=== PATIENT | female | born 1955 | race Caucasian/White ===

== ENCOUNTER 2021-11-18 15:16 | Outpatient (CLI) | payer OTHER, SELFPAY | END 2021-11-18 15:17 | disposition home or self-care (01) | LOC: WOUND 15:17 | PROVIDERS: PCP Physician Assistant; Visit Provider Nurse Practitioner Family | DX: I87.311 Chronic venous hypertension (idiopathic) with ulcer of right lower extremity (principal); L97.212 Non-pressure chronic ulcer of right calf with fat layer exposed; L03.115 Cellulitis of right lower limb; Q82.0 Hereditary lymphedema | CPT/HCPCS: 11042 ==

== ENCOUNTER 2021-11-24 10:41 | Outpatient (CLI) | payer OTHER, SELFPAY | END 2021-11-24 10:42 | disposition home or self-care (01) | LOC: WOUND 10:41 | PROVIDERS: Visit Provider Nurse Practitioner Family | DX: I87.311 Chronic venous hypertension (idiopathic) with ulcer of right lower extremity (principal); L97.812 Non-pressure chronic ulcer of other part of right lower leg with fat layer exposed; E11.622 Type 2 diabetes mellitus with other skin ulcer; Q82.0 Hereditary lymphedema | CPT/HCPCS: 11043 ==

== ENCOUNTER 2021-12-01 15:13 | Outpatient (CLI) | payer OTHER, SELFPAY | END 2021-12-01 15:14 | disposition home or self-care (01) | LOC: WOUND 15:13 | PROVIDERS: Visit Provider Nurse Practitioner Family | DX: L97.915 Non-pressure chronic ulcer of unspecified part of right lower leg with muscle involvement without evidence of necrosis (principal) | CPT/HCPCS: 11042; 11043 ==

== ENCOUNTER 2021-12-01 16:20 | Outpatient (CLI) | payer OTHER, SELFPAY | END 2021-12-01 16:21 | disposition home or self-care (01) | LOC: LAB 16:32 | PROVIDERS: Visit Provider Nurse Practitioner Family | DX: L97.915 Non-pressure chronic ulcer of unspecified part of right lower leg with muscle involvement without evidence of necrosis (principal) | CPT/HCPCS: 11042; 11043; 87070; 87186 ==

== ENCOUNTER 2021-12-08 15:28 | Outpatient (CLI) | payer OTHER, SELFPAY | END 2021-12-08 15:29 | disposition home or self-care (01) | LOC: WOUND 15:31 | PROVIDERS: Visit Provider Nurse Practitioner Family | DX: I87.311 Chronic venous hypertension (idiopathic) with ulcer of right lower extremity (principal); L97.812 Non-pressure chronic ulcer of other part of right lower leg with fat layer exposed; L03.115 Cellulitis of right lower limb | CPT/HCPCS: 11042 ==

== ENCOUNTER 2021-12-15 15:06 | Outpatient (CLI) | payer OTHER, SELFPAY | END 2021-12-15 15:07 | disposition home or self-care (01) | LOC: WOUND 15:06 | PROVIDERS: Visit Provider Nurse Practitioner Family | DX: I87.311 Chronic venous hypertension (idiopathic) with ulcer of right lower extremity (principal); L97.812 Non-pressure chronic ulcer of other part of right lower leg with fat layer exposed; L03.115 Cellulitis of right lower limb | CPT/HCPCS: 11042 ==

== ENCOUNTER 2021-12-22 15:39 | Outpatient (CLI) | payer OTHER, SELFPAY | END 2021-12-22 15:40 | disposition home or self-care (01) | LOC: WOUND 15:39 | PROVIDERS: Visit Provider Nurse Practitioner Family | DX: I87.311 Chronic venous hypertension (idiopathic) with ulcer of right lower extremity (principal); L97.812 Non-pressure chronic ulcer of other part of right lower leg with fat layer exposed; L03.115 Cellulitis of right lower limb | CPT/HCPCS: 11042 ==

== ENCOUNTER 2021-12-29 15:51 | Outpatient (CLI) | payer OTHER, SELFPAY | END 2021-12-29 15:52 | disposition home or self-care (01) | LOC: WOUND 15:51 | PROVIDERS: Visit Provider Nurse Practitioner Family | DX: L03.115 Cellulitis of right lower limb (principal); Q82.0 Hereditary lymphedema | CPT/HCPCS: 11042 ==

== ENCOUNTER 2022-01-05 15:36 | Outpatient (CLI) | payer OTHER, SELFPAY | END 2022-01-05 15:37 | disposition home or self-care (01) | LOC: WOUND 15:36 | PROVIDERS: Visit Provider Nurse Practitioner Family | DX: I87.311 Chronic venous hypertension (idiopathic) with ulcer of right lower extremity (principal); L97.215 Non-pressure chronic ulcer of right calf with muscle involvement without evidence of necrosis; L03.115 Cellulitis of right lower limb | CPT/HCPCS: 11042 ==

== ENCOUNTER 2022-01-12 15:37 | Outpatient (CLI) | payer OTHER, SELFPAY | END 2022-01-12 15:38 | disposition home or self-care (01) | LOC: WOUND 15:43 | PROVIDERS: Visit Provider Nurse Practitioner Family | DX: I87.311 Chronic venous hypertension (idiopathic) with ulcer of right lower extremity (principal); L97.215 Non-pressure chronic ulcer of right calf with muscle involvement without evidence of necrosis; L03.115 Cellulitis of right lower limb; Q82.0 Hereditary lymphedema; L97.812 Non-pressure chronic ulcer of other part of right lower leg with fat layer exposed | CPT/HCPCS: 11042; 97597 ==

== ENCOUNTER 2022-01-26 15:40 | Outpatient (CLI) | payer OTHER, SELFPAY | END 2022-01-26 15:41 | disposition home or self-care (01) | LOC: WOUND 15:40 | PROVIDERS: Visit Provider Nurse Practitioner Family | DX: I87.311 Chronic venous hypertension (idiopathic) with ulcer of right lower extremity (principal); L97.215 Non-pressure chronic ulcer of right calf with muscle involvement without evidence of necrosis; Q82.0 Hereditary lymphedema | CPT/HCPCS: 11042 ==

== ENCOUNTER 2022-02-02 15:05 | Outpatient (CLI) | payer OTHER, SELFPAY | END 2022-02-02 15:06 | disposition home or self-care (01) | LOC: WOUND 15:05 | PROVIDERS: Visit Provider Nurse Practitioner Family | DX: I87.311 Chronic venous hypertension (idiopathic) with ulcer of right lower extremity (principal); E11.622 Type 2 diabetes mellitus with other skin ulcer; L97.215 Non-pressure chronic ulcer of right calf with muscle involvement without evidence of necrosis; L97.212 Non-pressure chronic ulcer of right calf with fat layer exposed; Q82.0 Hereditary lymphedema; L72.0 Epidermal cyst | CPT/HCPCS: 11042 ==

== ENCOUNTER 2022-02-16 15:31 | Outpatient (CLI) | payer OTHER, SELFPAY | END 2022-02-16 15:32 | disposition home or self-care (01) | LOC: WOUND 15:31 | PROVIDERS: Visit Provider Nurse Practitioner Family | DX: L03.115 Cellulitis of right lower limb (principal); I87.311 Chronic venous hypertension (idiopathic) with ulcer of right lower extremity; L97.215 Non-pressure chronic ulcer of right calf with muscle involvement without evidence of necrosis; L97.212 Non-pressure chronic ulcer of right calf with fat layer exposed; Q82.0 Hereditary lymphedema | CPT/HCPCS: 11042 ==

== ENCOUNTER 2022-03-02 15:28 | Outpatient (CLI) | payer OTHER, SELFPAY | END 2022-03-02 15:29 | disposition home or self-care (01) | LOC: WOUND 15:28 | PROVIDERS: Visit Provider Nurse Practitioner Family | DX: I87.311 Chronic venous hypertension (idiopathic) with ulcer of right lower extremity (principal); L97.215 Non-pressure chronic ulcer of right calf with muscle involvement without evidence of necrosis; L97.212 Non-pressure chronic ulcer of right calf with fat layer exposed; Q82.0 Hereditary lymphedema | CPT/HCPCS: 11042 ==

== ENCOUNTER 2022-03-16 15:29 | Outpatient (CLI) | payer OTHER, SELFPAY | END 2022-03-16 15:30 | disposition home or self-care (01) | LOC: WOUND 15:29 | PROVIDERS: Visit Provider Nurse Practitioner Family | DX: I87.311 Chronic venous hypertension (idiopathic) with ulcer of right lower extremity (principal); L97.812 Non-pressure chronic ulcer of other part of right lower leg with fat layer exposed; I83.012 Varicose veins of right lower extremity with ulcer of calf; L97.215 Non-pressure chronic ulcer of right calf with muscle involvement without evidence of necrosis | CPT/HCPCS: 11042; 97597 ==

== ENCOUNTER 2022-03-30 15:20 | Outpatient (CLI) | payer OTHER, SELFPAY | END 2022-03-30 15:21 | disposition home or self-care (01) | LOC: WOUND 15:20 | PROVIDERS: Visit Provider Nurse Practitioner Family | DX: I87.311 Chronic venous hypertension (idiopathic) with ulcer of right lower extremity (principal); L97.215 Non-pressure chronic ulcer of right calf with muscle involvement without evidence of necrosis; L97.812 Non-pressure chronic ulcer of other part of right lower leg with fat layer exposed | CPT/HCPCS: 11042 ==

== ENCOUNTER 2022-04-13 15:37 | Outpatient (CLI) | payer OTHER, SELFPAY | END 2022-04-13 15:38 | disposition home or self-care (01) | PROVIDERS: Visit Provider Physician Assistant Surgical | DX: I87.311 Chronic venous hypertension (idiopathic) with ulcer of right lower extremity (principal); L97.215 Non-pressure chronic ulcer of right calf with muscle involvement without evidence of necrosis; L97.212 Non-pressure chronic ulcer of right calf with fat layer exposed; S81.802A Unspecified open wound, left lower leg, initial encounter | CPT/HCPCS: 11042 ==

== ENCOUNTER 2022-04-27 14:59 | Outpatient (CLI) | payer OTHER, SELFPAY | END 2022-04-27 15:00 | disposition home or self-care (01) | LOC: WOUND 14:59 | PROVIDERS: Visit Provider Nurse Practitioner Family | DX: L97.215 Non-pressure chronic ulcer of right calf with muscle involvement without evidence of necrosis (principal) | CPT/HCPCS: 11042 ==

== ENCOUNTER 2022-05-04 15:29 | Outpatient (CLI) | payer OTHER, SELFPAY | END 2022-05-04 15:30 | disposition home or self-care (01) | LOC: WOUND 15:30 | PROVIDERS: Visit Provider Nurse Practitioner Family | DX: I87.312 Chronic venous hypertension (idiopathic) with ulcer of left lower extremity (principal); L97.822 Non-pressure chronic ulcer of other part of left lower leg with fat layer exposed; E11.9 Type 2 diabetes mellitus without complications | CPT/HCPCS: 11042 ==

== ENCOUNTER 2022-05-13 09:15 | Outpatient (CLI) | payer OTHER, SELFPAY ==
--- NOTE | 2022-05-13 09:15 | CRLHL7_ITS ---
For Patients: As a result of the Century Cures Act, medical imaging exams and procedure reports are released immediately into your electronic medical record. You may view this report before your referring provider. If you have questions, please contact your health care provider. Technique: Double-contrast esophagram performed after the uneventful administration of effervescent crystals and thick barium followed by thin barium. Fluoroscopy time 1 minutes 13 seconds. Indication: Dysphagia Comparison: None. Findings: A large hiatal hernia is present involving approximately 2/3 or 3/4 of the stomach. The distal esophagus is distended. No obstruction to the flow of barium. Delayed esophageal clearance noted along with spontaneous reflux and tertiary esophageal contractions. Impression: Large hiatal hernia, esophageal dysmotility, spontaneous reflux and chronic reflux esophagitis. Dictated by Matthew Rubi MD @ 05/13/2022 11:19:53 AM (Electronically Signed)
== END 2022-05-13 09:16 | disposition home or self-care (01) ==
LOC: RAD 09:18
PROVIDERS: PCP Physician Assistant; Visit Provider Physician Assistant Medical
DX: R13.10 Dysphagia, unspecified (principal); K44.9 Diaphragmatic hernia without obstruction or gangrene; K21.9 Gastro-esophageal reflux disease without esophagitis
CPT/HCPCS: 74221

== ENCOUNTER 2022-06-01 15:20 | Outpatient (CLI) | payer OTHER, SELFPAY | END 2022-06-01 15:21 | disposition home or self-care (01) | PROVIDERS: PCP Physician Assistant; Visit Provider Nurse Practitioner Family | DX: E11.622 Type 2 diabetes mellitus with other skin ulcer (principal); I87.312 Chronic venous hypertension (idiopathic) with ulcer of left lower extremity; L97.829 Non-pressure chronic ulcer of other part of left lower leg with unspecified severity; Z79.84 Long term (current) use of oral hypoglycemic drugs | CPT/HCPCS: 11042 ==

== ENCOUNTER 2022-06-15 15:30 | Outpatient (CLI) | payer OTHER, SELFPAY | END 2022-06-15 15:31 | disposition home or self-care (01) | LOC: WOUND 15:30 | PROVIDERS: PCP Physician Assistant; Visit Provider Nurse Practitioner Family | DX: E11.622 Type 2 diabetes mellitus with other skin ulcer (principal); I87.312 Chronic venous hypertension (idiopathic) with ulcer of left lower extremity; L97.829 Non-pressure chronic ulcer of other part of left lower leg with unspecified severity; Q82.0 Hereditary lymphedema; L84 Corns and callosities; Z79.84 Long term (current) use of oral hypoglycemic drugs | CPT/HCPCS: 11056; 99212 ==

== ENCOUNTER 2023-11-04 08:03 | Outpatient (CLI) | payer MEDICARE, SELFPAY | END 2023-11-04 08:04 | disposition home or self-care (01) | PROVIDERS: PCP Physician Assistant; Visit Provider Physician Assistant | DX: S81.801A Unspecified open wound, right lower leg, initial encounter (principal); W54.1XXA Struck by dog, initial encounter; E11.8 Type 2 diabetes mellitus with unspecified complications; I10 Essential (primary) hypertension; Z79.84 Long term (current) use of oral hypoglycemic drugs | CPT/HCPCS: 97597; G0463 ==

== ENCOUNTER 2023-11-11 09:50 | Outpatient (CLI) | payer MEDICARE, SELFPAY | END 2023-11-11 09:51 | disposition home or self-care (01) | LOC: WOUND 09:51 | PROVIDERS: PCP Physician Assistant; Visit Provider Nurse Practitioner Family | DX: E11.622 Type 2 diabetes mellitus with other skin ulcer (principal); L97.222 Non-pressure chronic ulcer of left calf with fat layer exposed; L97.212 Non-pressure chronic ulcer of right calf with fat layer exposed; I10 Essential (primary) hypertension; Z79.84 Long term (current) use of oral hypoglycemic drugs | CPT/HCPCS: 11042; 97597 ==

== ENCOUNTER 2023-11-19 09:50 | Outpatient (CLI) | payer MEDICARE, SELFPAY | END 2023-11-19 09:51 | disposition home or self-care (01) | LOC: WOUND 09:50 | PROVIDERS: PCP Physician Assistant; Visit Provider Nurse Practitioner Family | DX: E11.622 Type 2 diabetes mellitus with other skin ulcer (principal); L97.212 Non-pressure chronic ulcer of right calf with fat layer exposed; I10 Essential (primary) hypertension | CPT/HCPCS: 11042 ==

== ENCOUNTER 2023-11-25 09:27 | Outpatient (CLI) | payer MEDICARE, SELFPAY | END 2023-11-25 09:28 | disposition home or self-care (01) | LOC: WOUND 09:39 | PROVIDERS: PCP Physician Assistant; Visit Provider Nurse Practitioner Family | DX: E11.622 Type 2 diabetes mellitus with other skin ulcer (principal); L97.212 Non-pressure chronic ulcer of right calf with fat layer exposed; I10 Essential (primary) hypertension; Z79.84 Long term (current) use of oral hypoglycemic drugs | CPT/HCPCS: 11042 ==

== ENCOUNTER 2023-12-02 09:41 | Outpatient (CLI) | payer MEDICARE, SELFPAY | END 2023-12-02 09:42 | disposition home or self-care (01) | LOC: WOUND 09:42 | PROVIDERS: PCP Physician Assistant; Visit Provider Nurse Practitioner Family | DX: E11.622 Type 2 diabetes mellitus with other skin ulcer (principal); L97.212 Non-pressure chronic ulcer of right calf with fat layer exposed; Z79.84 Long term (current) use of oral hypoglycemic drugs | CPT/HCPCS: 11042 ==

== ENCOUNTER 2023-12-09 09:36 | Outpatient (CLI) | payer MEDICARE, SELFPAY | END 2023-12-09 09:37 | disposition home or self-care (01) | LOC: WOUND 09:36 | PROVIDERS: PCP Physician Assistant; Visit Provider Nurse Practitioner Family | DX: E11.622 Type 2 diabetes mellitus with other skin ulcer (principal); L97.212 Non-pressure chronic ulcer of right calf with fat layer exposed; Z79.84 Long term (current) use of oral hypoglycemic drugs | CPT/HCPCS: 11042 ==

== ENCOUNTER 2023-12-16 10:00 | Outpatient (CLI) | payer MEDICARE, SELFPAY | END 2023-12-16 10:01 | disposition home or self-care (01) | LOC: WOUND 10:00 | PROVIDERS: PCP Physician Assistant; Visit Provider Nurse Practitioner Family | DX: E11.622 Type 2 diabetes mellitus with other skin ulcer (principal); L97.218 Non-pressure chronic ulcer of right calf with other specified severity; Z79.84 Long term (current) use of oral hypoglycemic drugs | CPT/HCPCS: G0463 ==

== ENCOUNTER 2024-05-18 13:57 | Outpatient (CLI) | payer MEDICARE, SELFPAY ==
--- OUTSIDE RECORDS SUMMARY | 2024-05-18 12:02 | XMS_ITS | Continuity of Care Document ---
[facility] Address [address] [place] [address]- Encounter PVA Date(s): 04/20/24 - 04/20/24 [place] [address] [place] [address] [place] [phone] Encounter Diagnosis Cellulitis(Discharge Diagnosis) - 04/20/24 Discharge Disposition: Home/Self Care Attending Physician: SRINI MEREDITH MD Admitting Physician: SRINI MEREDITH MD Referring Physician: SRINI MEREDITH MD Allergies, Adverse Reactions, Alerts No Known Allergies Medications Bactrim DS oral tablet 1 tab, Oral, BID, X 7 day, # 14 tab, 0 Refill(s), 0 Start Date: 04/20/24 Stop Date: 04/27/24 Status: Ordered Vital Signs Most recent to oldest [Reference Range]: 1 2 Blood Pressure [90-140/60-90 mmHg] 165/1 01mmHg *HI* (04/20/24 9:50 PM) 177/106mmHg *HI* (04/20/24 5:54 PM) Blood Pressure Location Right (04/20/24 5:54 PM) Blood Pressure Method Automatic (04/20/24 9:50 PM) Automatic (04/20/24 5:54 PM) Dosing BMI 29 (04/20/24 9:50 PM) 29 (04/20/24 5:54 PM) Dosing BSA-Mosteller 1.92 m2 (04/20/24 9:50 PM) 1.92 m2 (04/20/24 5:54 PM) Dosing Weight 80 kg (04/20/24 9:50 PM) 80 kg (04/20/24 5:54 PM) Heart Rate [60-100 bpm] 70 bpm (04/20/24 9:50 PM) 75 bpm (04/20/24 5:54 PM) Height 165.1 cm (04/20/24 9:50 PM) 165.1 cm (04/20/24 5:54 PM) MAP 129 mmHg (04/20/24 5:54 PM) Respiratory Rate [14-20 breaths/min] 18 breaths/min (04/20/24 9:50 PM) 18 breaths/min (04/20/24 5:54 PM) SpO2/Pulse Oximetry [85-100 %] 95 % (04/20/24 9:50 PM) 94 % (04/20/24 5:54 PM) Temperature Temporal [36.3-38 degC] 36.6 degC (04/20/24 9:50 PM) 36.8 degC (04/20/24 5:54 PM) Social History Social History Type Response Smoking Status Never smoker entered on: 04/20/24 Sex Hospital Discharge Instructions Follow Up Care 04/20/2024 17:23:06 With:[facility] Address: [facility] [place] [address]- Business (1) When:3-5 days With:[facility] Address: [address] [place] [phone] Business (1) When:3-5 days With:return to the ED if youf have any worsening pain, shortness of breath, fever, numbness, tingling, weakness, or for any other concerns. Address:Unknown When:As needed Physician Emergency department Note * SHARON GUTIERREZ, HARRISON Luciano: PERFORM Event Display: ED Note-Physician Authored Date: DATE/TIME NOTE CREATED: 04/20/2024 22:42:45 DATE/TIME PATIENT SEEN: Time seen:??04/20/2024 21:33:46 CHIEF COMPLAINT: Pt comes from [place], ??R leg infection x4 weeks, red, swollen and pain 12/24 ??Hx infection/ cellulitis HISTORY OF PRESENT ILLNESS: pt with leg infection started 10d ago been on keflex but still think it is infected RLE anterior tib wound no fever able to ambulate ?? PHYSICAL EXAM: VITAL SIGNS: Vital Signs: Last Charted: Temperature Temporal 36.6 degC?? (04/20 21:50) Heart Rate 70 bpm?? (04/20 21:50) Respiratory Rate 18 breaths/min?? (04/20 21:50) Systolic Blood Pressure 165 mmHg (H) (04/20 21:50) Diastolic Blood Pressure 101 mmHg (H) (04/20 21:50) MAP 129 mmHg?? (04/20 17:54) Blood Pressure Location Right ?? (04/20 17:54) Blood Pressure Method Automatic ?? (04/20 21:50) SpO2/Pulse Oximetry 95 %?? (04/20 21:50) Dosing BMI 29 ?? (04/20 21:50) GENERAL:?? [No acute distress, non-toxic appearing.]_ HEAD:?? [Normal with no signs of head trauma.]_ EYES:?? [PERRLA, EOMI, conjunctiva normal, no discharge.]_ ENT:?? [Hearing grossly intact, normal oropharynx.]_ NECK:?? [Supple, no tenderness, no lymphadenopathy, no masses, no thyromegaly, no bruits, no JVD.]_ LUNGS:?? [Clear breath sounds bilaterally.?? No wheezes, rales, or rhonchi.]_ HEART:?? [Regular rate and rhythm.?? Normal S1 and S2, without murmurs, rub, or gallop.]_ VASC:?? [No edema. Peripheral pulses normal and equal in all extremities.]_ ABD:?? [Bowel sounds normal, soft, nontender, no masses, no organomegaly.]_ :?? [Normal.]_ LYMPH:?? [No lymphadenopathy noted.]_ EXT:?? [Normal range of motion, no joint swelling, no clubbing, no cyanosis.]_ SKIN:?? [wound TUBES/LINES/DRAINS: [None.]_ NEURO:?? [Alert and oriented x 3. Normal affect.?? Cranial nerves intact.?? No focal sensory or strength deficits.?? Reflexes symmetric.]_ MEDICAL DECISION MAKING: pt stable has leg wound possible cellulitis? given bactrim for trial low concern for deep space infection given that pt has no crepitus and no fluctuance dc IMPRESSION/PLAN: Cellulitis??L03.90 Orders: Discharge Patient Primary Assessment Screenings/History Adults Triage Part 1 Triage Part 2 PATIENT EDUCATION: Cellulitis, Adult, [id number] FOLLOW UP: With When Contact Information [facility] Within 3-[address] [place] [address]- Business (1) Additional Instructions: [facility] Within 3-5 days [address] [place] [address]- [phone] Business (1) Additional Instructions: return to the ED if youf have any worsening pain, shortness of breath, fever, numbness, tingling, weakness, or for any other concerns. Within As needed Additional Instructions: PROBLEM LIST/PAST MEDICAL HISTORY: Ongoing ? No qualifying data?? Historical ? No qualifying data? SOCIAL HISTORY: Home/Environment Human Trafficking Red Flags None., 04/20/2024 Substance Abuse Denies use Use:., 04/20/2024 Tobacco Never smoker, 04/20/2024 MEDICATIONS ORDERED: No qualifying data available MEDICATIONS ADMINISTERED: Given Bactrim DS 800 mg-160mg, 1 tab, Oral HOME MEDICATIONS: New sulfamethoxazole-trimethoprim (Bactrim DS oral tablet)1 tablet(s) Oral Twice daily for 7 day(s). Refills: 0. ALLERGIES: NKA RADIOLOGY/DIAGNOSTIC RESULTS: Radiology - Last 36 hours (0) No results in past 36 hours ? Diagnostics - Non-Radiology (0) No qualifying data.? Electronically Signed On 04/20/24 22:42 MST HARRISON HERRERA MD
--- OUTSIDE RECORDS SUMMARY | 2024-05-18 12:03 | XMS_ITS | Referral Summary ---
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 Role Phone Susan Kenny PA-C Unavailable Luis A Flores MD Unavailable [phone] Susan Kenny PA-C Unavailable Susan Kenny PA-C Primary Care Provider [phone] Sonia Castrejon Od OD Unavailable [phone] Allergies Active Allergy Reactions Criticality Noted Date Comments Cat Hair Extract Medium 08/19/2016 Other reaction(s): Dyspnea Mold High 09/09/2017 Other reaction(s): Respiratory Distress Molds & Smuts 09/09/2017 Morphine Itching Low 04/26/2013 Medications albuterol (PROAIR HFA/PROVENTIL HFA/VENTOLIN HFA) 108 (90 Base) MCG/ACT inhaler Inhale 2 puffs into the lungs 07/10/2021 Active amLODIPine (NORVASC) 10 MG tablet Take 10 mg by mouth 06/09/2021 Active fluticasone (FLOVENT HFA) 110 MCG/ACT inhaler Inhale 2 puffs into the lungs 05/08/2021 Active gabapentin (NEURONTIN) 300 MG capsule TAKE 1 CAPSULE BY MOUTH THREE TIMES A DAY 06/17/2021 Active levofloxacin (LEVAQUIN) 500 MG tablet 11/18/2020 Active lisinopril (ZESTRIL) 20 MG tablet TAKE 2 TABLETS BY MOUTH ONCE DAILY. 02/19/2021 Active triamterene-HCT Z (MAXZIDE) 75-50 MG tablet Take 1 tablet by mouth Active Social History Tobacco Use Types Packs/Day Years Used Date Smoking Tobacco: Never Assessed PHQ-2 Answer Date Recorded PHQ-2 Score 0 08/21/2021 Adolescent Education Answer Date Record ed Getting School Help Needed Not on file 02/06 Comments Unknown Sex and Gender Information Value Date Recorded Sex Assigned at Not on file Legal Sex Female 10:47 AM CDT Gender Identity Not on file Sexual Orientation Not on file Plan of Treatment Not on file Insurance [place] [id number] [employer] Care Teams Rolling Machine Tender Relationship Specialty Start Date End Date Susan Kenny PA-C PCP - General 08/29/21 Susan Kenny PA-C 07/11/21 Luis A Flores MD Ophthalmology 07/11/21 Susan Kenny PA-C 08/29/21 Sonia Castrejon Od, OD [facility] [address] [place] [address] 09/04/21
--- OUTSIDE RECORDS SUMMARY | 2024-05-18 12:03 | XMS_ITS | Clinical Summary ---
Author Organization [employer] [facility] Address [place], [place] [address] Care Team Providers Care Fire Hydrant Mechanic Name Role Phone [facility], [place] Unavailable Susan Kenny Primary Care Provider [phone] Allergies Active Allergy Reactions Criticality Noted Date Comments Allergenic Extracts Dyspnea Unknown 06/22/2012 Mold Respiratory Distress High 09/09/2017 Morphine Itching Unknown 04/26/2013 Medications NebulizerIndicati ons:COPD exacerbation (HC) Use as directed. 1 Device 11/19/19 21 Active diabetic supplies, miscellan.Indicat ions:Type 2 diabetes mellitus without complication, without long-term current use of insulin (HC) Dispense glucose meter, test strips and lancets covered by patient insurance. Test 1 times per day. 1 Kit 01/28/20 21 Active multivitamin (MVI) tabletIndications :Lumbar radiculopathy Take 1 Tablet by mouth once daily. 0 05/10/20 21 Active ascorbic acid, vitamin C, (Vitamin C) 1,000 mg tablet Take 1 Tablet (1,000 mg) by mouth once daily. 0 12/10/19 22 Active ammonium lactate 12% topical (LACHYDRIN) 12 % lotion APPLY TO DRY CALLUS SKIN BLE DAILY NEEDED 01/06/20 22 Active calcium citrate-vitamin d 315 mg-200 unit 315 mg-5 mcg (200 unit) tabletIndications :Asymptomatic postmenopausal state Take 1 Tablet by mouth two times daily with meals. 180 Tablet 3 02/25/20 22 Active polyethylene glycol (MIRALAX; GLYCOLAX) 17 g packetIndications :Chronic constipation Mix 17 g (1 Packet) in liquid then take by mouth once daily if needed for Constipation (Constipation). You may take this along with your usual dose of senna for better treatment of constipation. STOP if you develop diarrhea. 10 Packet 04/29/20 22 Active lancets (Accu-Chek Softclix Lancets)Indicatio ns:Type 2 diabetes mellitus without complication, without long-term current use of insulin (HC) Test 1 times per day. 100 Each 3 06/21/19 23 Active Blood-Glucose Meter (Accu-Chek Guide Me Glucose Mtr)Indications:T ype 2 diabetes mellitus without complication, without long-term current use of insulin (HC) Dispense glucose meter, test strips and lancets covered by the patient insurance. Test 1 times per day. 1 Kit 06/22/19 23 Active cyclobenzaprine (FLEXERIL) 10 mg tabletIndications :Sciatica of left side Take 0.5 Tablets (5 mg) by mouth three times daily. 20 Tablet 07/08/19 24 Active blood sugar diagnostic (Accu-Chek Guide test strips) stripIndications: Type 2 diabetes mellitus without complication, without long-term current use of insulin (HC) TEST ONCE A DAY 100 Each 3 07/21/19 24 Active Biotin 1 mg tablet Take 1 Tablet by mouth once daily. Active Magnesium Oxide 500 mg magnesium tabIndications:Hy pomagnesemia Take 500 mg by mouth once daily. 08/13/19 24 Active sennosides (SENNA) 8.6 mg tabletIndications :S/P spinal surgery Take 2 Tablets (17.2 mg) by mouth 2 times daily if needed for Constipation. 08/13/19 24 Active acetaminophen (TYLENOL EXTRA STRGTH) 500 mg tabletIndications :Status post total right knee replacement Take 2 Tablets (1,000 mg) by mouth every 6 hours. Max acetaminophen dose: 4000mg in 24 hrs. 08/13/19 24 Active Additional Information Patient taking differently:1,000 mg OralQ 6H PRN, Headache, Pain, Temp>101.5F (38.6C), Max acetaminophen dose: 4000mg in 24 hrs., Reported on 04/27/2024 albuterol HFA (Ventolin HFA) 90 mcg/actuation inhalerIndication s:Mild intermittent asthma without complication Inhale 2 Puffs by mouth every 4 hours if needed for Shortness Of Breath or Wheezing (for shortness of breath or wheezing). 18 g 09/06/19 Active aMILoride (MIDAMOR) 5 mg tabletIndications :Peripheral edema,Essential hypertension,Hypo kalemia,Hyperaldo steronism (HC) Take 1 Tablet (5 mg) by mouth once daily. 90 Tablet 09/06/19 Active atorvastatin (LIPITOR) 20 mg tabletIndications :High cholesterol Take 1 Tablet (20 mg) by mouth once daily with evening meal. 90 Tablet 09/06/19 Active carvediloL (COREG) 12.5 mg tabletIndications :Hypertension, unspecified type Take 1 Tablet (12.5 mg) by mouth two times daily with meals. 180 Tablet 09/06/19 Active cloNIDine HCL (CATAPRES) 0.1 mg tabletIndications :Primary hypertension Take 1 Tablet (0.1 mg) by mouth two times daily. 180 Tablet 09/06/19 Active ferrous sulfate, 65 mg elemental, tabletIndications :Microcytic anemia Take 1 Tablet (325 mg) by mouth once daily with a meal. 90 Tablet 09/06/19 24 Active fluticasone propionate (FLOVENT) 110 mcg/Actuation inhalerIndication s:Mild intermittent asthma without complication Inhale 2 Puffs by mouth two times daily. 12 g 09/06/19 Active spironolactone (ALDACTONE) 50 mg tabletIndications :Essential hypertension,Hypo kalemia Take 1 Tablet (50 mg) by mouth once daily. 90 Tablet 09/06/19 Active omeprazole (PRILOSEC) 20 mg Delayed-Release capsuleIndication s:Chronic GERD TAKE ONE CAPSULE BY MOUTH EVERY DAY BEFORE A MEAL 90 Capsule 3 09/20/19 Active Additional Information Patient taking differently:20 mg OralDAILY PRN, GI Upset, Reported on 04/27/2024 turmeric/turmeric ext/pepr ext (turmeric-turmeri c ext-pepper) 500-3 mg cap Take by mouth. 02/08/20 Active metFORMIN (GLUCOPHAGE) 500 mg tabletIndications :Type 2 diabetes mellitus without complication, without long-term current use of insulin (HC) TAKE ONE TABLET BY MOUTH EVERY MORNING AND TAKE TWO TABLETS BY MOUTH EVERY EVENING TAKE BEFORE MEALS 270 Tablet 1 02/08/20 24 Active pregabalin (LYRICA) 75 mg capsuleIndication s:Lumbar radicular pain Take 1 Capsule (75 mg) by mouth two times daily. 180 Capsule 1 02/08/20 24 Active methylPREDNISolon e (MEDROL DOSEPAK) 4 mg tabletIndications :Acute on chronic back pain Take by mouth as instructed per packaging. 21 Tablet 04/25/20 24 Active ondansetron (ZOFRAN) 4 mg tabletIndications :Nausea and vomiting, unspecified vomiting type Take 1 Tablet (4 mg) by mouth every 8 hours if needed for Nausea/Vomiting. 30 Tablet 1 05/15/20 24 Active oxyCODONE (ROXICODONE) 5 mg immediate release tabletIndications :T12 compression fracture, with delayed healing, subsequent encounter Take 1 Tablet (5 mg) by mouth three times daily. 90 Tablet 05/15/20 24 Active alendronate (FOSAMAX) 70 mg tabletIndications :Age-related osteoporosis with current pathological fracture with delayed healing, subsequent encounter Take 1 Tablet (70 mg) by mouth once a week in the morning. Take on empty stomach with full glass of water. Do not lie down for 1 hr. 12 Tablet 3 05/15/20 24 Active ondansetron (ZOFRAN) 4 mg tabletIndications :Nausea TAKE ONE TABLET BY MOUTH EVERY 8 HOURS NEEDED FOR NAUSEA AND VOMITING 20 Tablet 1 10/07/19 23 024 Discontin ued(Reord er (E-cancel not sent)) cephalexin 500 mg capsuleIndication s:Wound infection,Open wound of right lower leg, initial encounter Take 1 Capsule (500 mg) by mouth three times daily for 10 days. 30 Capsule 04/10/20 24 024 methylPREDNISolon e (Medrol, Brandon,) 4 mg tabletIndications :Acute midline low back pain without sciatica Take by mouth as instructed per packaging. 21 Tablet 04/10/20 24 024 Discontin ued(Dupli romel therapy (E-cancel not sent)) tiZANidine (ZANAFLEX) 4 mg tabletIndications :Acute midline low back pain without sciatica Take 1 Tablet (4 mg) by mouth at bedtime for 14 days. 14 Tablet 11/25/ 024 traMADoL (ULTRAM) 50 mg tabletIndications :Lumbar disc herniation Take 1 Tablet (50 mg) by mouth 4 times daily if needed for Pain. 60 Tablet 04/17/20 24 024 Discontin ued(Reord er (E-cancel not sent)) traMADoL (ULTRAM) 50 mg tabletIndications :Lumbar disc herniation Take 1 Tablet (50 mg) by mouth 4 times daily if needed for Pain. 120 Tablet 1 04/27/20 24 024 Discontin ued(*Med complete/ Regimen complete/ Level of care change) Active Problems Problem Noted Date Diagnosed Date Lumbar disc herniation 08/09/2023 Skin ulcer of left pretibial region limited to breakdown of skin 07/06/2023 MDD (major depressive disord er), recurrent episode, moderate 07/06/2023 Type 2 diabetes mellitus wit h other skin ulcer, with long-term current use of insulin 07/06/2023 S/p Right total knee arthrop lasty DOS: 01/21/2023 with Ameya Daniel MD 01/21/2023 Primary osteoarthritis of right knee 01/21/2023 Type 2 diabetes mellitus wit hout complication, without long-term current use of insulin 08/18/2022 Arthritis of knee 03/10/2022 Calculus of gallbladder with out cholecystitis without obstruction 12/09/2021 Hyperaldosteronism 12/09/2021 Pain associated with wound 08/09/2021 Wound of left leg 08/09/2021 COVID-19 06/10/2021 Lumbar radiculopathy 04/18/2021 Severe lower brachial plexopathy, right upper ex tremity 03/11/2021 Instability of right shoulder joint 03/11/2021 Massive, full-thickness tear of right rotator cu ff 03/11/2021 Bilateral leg weakness 03/11/2021 Multiple falls 03/11/2021 Arthrosis of right acromioclavicular joint 12/02 Biceps tendon tear 12/02/2020 Traumatic complete tear of right rotator cuff Chronic pain of right knee 11/13/2020 Elevated uric acid in blood 11/13/2020 Right shoulder pain 07/25/2020 S/P ORIF (open reduction internal fixation) frac ture 03/06/2019 Closed extra-articular fract ure of distal end of tibia with malunion, left 11/18/2017 Overview (11/12/2020): Added automatically from request for surgery [id number] Added automatically from request for surgery [id number] Hiatal hernia 09/24/2017 Overview (09/24/2017): EGD 09/2017 large hiatal hernia with nancy erosions Essential hypertension 02/19/2016 Iron deficiency anemia 04/28/2013 Overview (11/07/2020): EGD 05/2013 Reactive gastropathy, try omeprazole Lumbar spinal stenosis 09/29/2012 L4-5 disk protrusion 09/29/2012 Lumbar facet arthropathy 09/29/2012 S/P lumbar discectomy at L5-S1 x 2 09/29/2012 S/P total hip arthroplasty 09/29/2012 Unspecified asthma(493.90) 08/14/2006 Resolved Problems Problem Noted Date Diagnosed Date Resolved Date Controlled substance agreement signed 10/31/2021 09/30/2022 COPD exacerbation 06/19/2021 09/24/2022 Cellulitis of left lower extremity 06/09/2021 08/18/2022 Hypokalemia 06/09/2021 10/06/2022 Open wound of left lower extremity 06/09/2021 09/30/2022 Right hemiparesis 04/18/2021 06/09/2021 Type 2 diabetes mellitus, wi th long-term current use of insulin 03/11/2021 08/18/2022 Lymphedema 01/14/2021 09/30/2022 Peripheral edema 11/13/2020 09/30/2022 Wound cellulitis 11/07/2020 08/18/2022 Routine adult health maintenance 09/24/2017 09/30/2022 Overview (09/24/2017): Colonoscopy 09/2017 inflammatory polyp, repeat in 10 years Septic olecranon bursitis 12/31/2011 FDC (current) use of anticoagulants 07/04/2009 09/29/2012 Overview (07/04/2009): INR Goal Range: 2.0 - 3.0 Lumbago 09/29/2012 Overview (04/10/2009): sp two surgeries and an injection 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 Encounters Date Type Department Care Team Description 05/15/2024 Telephone [facility] [address] [place] [address] uSsan Kenny PA 05/14/2024 Refill [facility] [address] [place] [address] Susan Kenny PA Refill Request (Ondansetron) 05/05/2024 Telephone [facility] [address] [place] [address] Susan Kenny PA Care Coordination 05/04/2024 Telephone [facility] [address] [place] [address] Susan Kenny PA Results 05/03/2024 11:15 AM MEDICAL OFFICE TECHNICIAN Ancillary Procedure [facility] [address] [facility] [address] [place] [address] 05/03/2024 Travel 04/27/2024 8:50 AM MEDICAL OFFICE TECHNICIAN Office Visit [facility] [address] [place] [address] Susan Kenny PA Back Pain (And right leg pain) 04/27/2024 Travel 04/25/2024 3:03 PM MEDICAL OFFICE TECHNICIAN - 04/25/2024 6:40 PM MEDICAL OFFICE TECHNICIAN Emergency [facility] [address] [place] [address] Avery Rodríguez MD Acute on chronic back pain (Primary Dx); Numbness and tingling of right lower extremity; Weakness of right lower extremity; Decreased frequency of bowel movements; S/P lumbar discectomy at L5-S1 x 2; Wound of right leg, initial encounter; Essential hypertension Discharge Disposition: Home Self Care 04/25/2024 Travel 04/20/2024 Telephone [facility] [address] [place] [address] Susan Kenny PA Abnormal Lab Results (test results) 04/17/2024 Refill [facility] [address] [place] [address] Susan Kenny PA Refill Request (traMADoL (ULTRAM) 50 mg tablet) 04/14/2024 Refill [facility] [address] [place] [address] Susan Kenny PA Refill Request (Tramadol) 04/10/2024 5:10 PM MEDICAL OFFICE TECHNICIAN Office Visit [facility] [address] [place] [address] Jose Deras PA Derm Problem (open wound on lower right leg x 2 weeks, blister popped 2 days ago); Back Pain/problem (middle lower back. since finished PT ) 04/10/2024 Travel 04/10/2024 Refill [facility] [address] [place] [address] Susan Kenny PA Refill Request (Tramadol) 04/10/2024 Nurse Triage [facility] [address] [place] [address] Susan Kenny PA Lower Back Pain 04/05/2024 Refill [facility] [address] [place] [address] Susan Kenny PA Refill Request ( medication) 03/24/2024 10:59 AM MEDICAL OFFICE TECHNICIAN - 03/24/2024 11:59 PM MEDICAL OFFICE TECHNICIAN Hospital Encounter [facility] [address] [place] [address] Zina Ku, SENIOR SYSTEMS ANALYST Chapo Lindsey, PT 03/24/2024 Travel 03/21/2024 10:45 AM MEDICAL OFFICE TECHNICIAN Office Visit [facility] [address] [place] [address] [place] [address] Ryann Spivey MD Derm Problem 03/21/2024 Travel 03/20/2024 10:57 AM MEDICAL OFFICE TECHNICIAN - 03/20/2024 11:59 PM MEDICAL OFFICE TECHNICIAN Hospital Encounter [address] [address] Zina Ku, Carola Herring, CHIEF TECHNICAL OFFICER 03/20/2024 Travel 03/17/2024 11:00 AM CDT - 03/17/2024 11:59 PM CDT Hospital Encounter [address] [address] Zina Ku, Carola Herring, CHIEF TECHNICAL OFFICER 03/17/2024 Travel 03/14/2024 10:13 AM CDT - 03/14/2024 11:59 PM CDT Hospital Encounter [address] [address] Zina Ku, SENIOR SYSTEMS ANALYST Chapo Lindsey, PT 03/14/2024 Travel 03/08/2024 11:45 AM CDT - 03/08/2024 11:59 PM CDT Hospital Encounter [address] [address] Zina Ku, Carola Herring, CHIEF TECHNICAL OFFICER 03/08/2024 Travel 03/03/2024 10:59 AM CDT - 03/03/2024 11:59 PM CDT Hospital Encounter [address] [address] Zina Ku, Carola Herring, CHIEF TECHNICAL OFFICER 03/03/2024 Travel 02/29/2024 10:13 AM CDT - 02/29/2024 11:59 PM CDT Hospital Encounter [address] [address] Zina Ku, SENIOR SYSTEMS ANALYST Chapo Lindsey, PT 02/29/2024 Travel 02/25/2024 10:15 AM CDT - 02/25/2024 11:59 PM CDT Hospital Encounter [address] [facility] [place] [address] Zina Ku, SENIOR SYSTEMS ANALYST Chapo Lindsey, PT 02/25/2024 Travel 02/22/2024 10:59 AM CDT - 02/22/2024 11:59 PM CDT Hospital Encounter [address] [place] [address] Zina Ku, SENIOR SYSTEMS ANALYST Carola Warner, CHIEF TECHNICAL OFFICER 02/22/2024 Travel 02/18/2024 10:55 AM CDT - 02/18/2024 11:59 PM CDT Hospital Encounter [address] [address] Zina Ku, SENIOR SYSTEMS ANALYST Chapo Lindsey, PT 02/18/2024 Travel from Last 3 Months Immunizations Name Administration Dates Next Due COVID-19 VACCINE SPIKEVAX (M ODERNA 50MCG/0.5ML) 12YO+ PFS 02/08/2024 COVID-19 vaccine (Pfizer-Bio NTech 30mcg/0.3mL) 12YO+ BIVALENT PF, MDV 03/19/2022 COVID-19 vaccine (Pfizer-Bio NTech 30mcg/0.3mL) 12YO+ SATYA-SUCROSE PF, MDV 12/09/2021 COVID-19 vaccine (Pfizer-Bio NTech 30mcg/0.3mL) PF, MDV 04/11/2021,09/19/2020,08/29/2020 Hepatitis A (Adult) 10/29/2011,04/29/2011 Influenza A (H1N1), Inactivated 06/20/2009 Influenza A (H1N1), Inactiva gabo (Age >=3 Years) 06/20/2009 Influenza Virus, Unspecified 01/29/2019 Influenza, IIV3 (Age 6-35 mos) 04/29/2011 Influenza, IIV3 (Age >=3 years) 02/08/20 13,03/17/2012,04/29/2011,2009,02/19/2009,03/29/2008,03/24/2007,1 Influenza, IIV4 03/19/2022,,03/02/2020,2018,01/20/2018,02/23/2017,02/18/2016,1 Influenza, Inactivated AIIV4 (Age 65+ Years) Preserv Free 02/25/2023 Influenza, Inactivated IIV3 (Age 65+ Years) Preserv Free 02/08/2024 Pneumococcal Conj 20-valent (Prevnar 20) 09/29/2022 Pneumococcal Poly,23-Valent (Pneumovax) 01/10/2004 Pneumococcal conj 13-Valent (Prevnar 13) 08/15/2014 Td (Age >=7 Years) 10/20/1999 Tdap 08/30/2018,04/10/2009 Zoster (Shingrix-RZV, recombinant) 03/21/2019, Family History Medical History Relation Name Comments Other Father Glaucoma Cancer-breast Maternal Aunt Cancer-breast Maternal Grandmother Osteoporosis Maternal Grandmother Heart Disease Mother has had bypass surgery and stents Hypertension Mother Osteoporosis Mother Thyroid Disease Mother Other Paternal Grandfather gout Anesthesia Problem No Family History Blood Disease No Family History Relation Name Status Comments Father Alive Maternal Aunt Maternal Grandmother Mother (Age 83) Paternal Grandfather Social History Tobacco Use Types Packs/Day Years Used Date Smoking Tobacco: Former Cigarettes Q uit: 08/16/2007 Passive Smoke Exposure: Never Smokeless Tobacco: Never Tobacco Cessation:Counseling Given: Not Answered Comments:Patient states she quit a while ago. Alcohol Use Standard Drinks/Week Comments Yes 7 (1 standard drink = 0.6 oz pure alcohol) glass of wine once per day or so [facility] Utilities Answer Date Recorded Do you have trouble paying f or utilities (for example, heat, electricity, water, phone)? Yes 08/09/2023 PHQ-2 Answer Date Recorded PHQ-2 TOTAL SCORE 4 02/08/2024 Social Connections Answer Date Recorded Do you often feel lonely or isolated from those around you? 0 08/09/2023 Financial Resource Strain Answer Date R ecorded Difficulty of Paying Living Expenses 3 09/29/2022 Difficulty of Paying Living Expenses Not on file 09/29/2022 Food Insecurity Answer Date Recorded Do you worry your food will run out before you are able to buy more? 1 08/09/2023 Transportation Needs Answer Date Record ed Does lack of transportation keep you from medica l appointments? 1 08/09/2023 Does lack of transportation keep you from work, meetings or getting things that you need? 1 08/09/2023 Housing Stability Answer Date Recorded What is your housing situation today? 1 08/09/2023 Interpersonal Safety Answer Date Record ed Are you being hit, kicked, p ushed or yelled at (see row info)? 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 Not on file Not on file Not on file Travel History Travel Start Travel End [place] 04/16/2024 04/23/2024 Obstetrics History Para Term AB IAB SAB Ectopic Multiple Livin g Live Births 3 3 3 3 Date Outcome GA Total Labor Labor/2nd/3rd Weight Sex Type Anes PTL Radha A1 A5 Name Clin Last Filed Vital Signs Vital Sign Reading Time Taken Comments Blood Pressure 162/91 04/27/2024 9:09 AM MEDICAL OFFICE TECHNICIAN Pulse 69 04/27/2024 9:09 AM MEDICAL OFFICE TECHNICIAN Temperature 36.7 C (98.1 F) 04/25/2024 5:00 PM MEDICAL OFFICE TECHNICIAN Respiratory Rate 16 04/25/2024 5:00 PM MEDICAL OFFICE TECHNICIAN Oxygen Saturation 96% 04/27/2024 9:09 AM MEDICAL OFFICE TECHNICIAN Inhaled Oxygen Concentration - - Weight 81.6 kg (180 lb) 04/27/2024 9:09 AM MEDICAL OFFICE TECHNICIAN Height 165.1 cm (5' 5) 04/25/2024 2:15 PM MEDICAL OFFICE TECHNICIAN Body Mass Index 29.95 04/25/2024 2:15 PM MEDICAL OFFICE TECHNICIAN Plan of Treatment Upcoming Encounters Date Type Department Care Team (Late st Contact Info) Description 05/22/2024 10:30 AM MEDICAL OFFICE TECHNICIAN Office Visit [facility] [address] [address] [place] [address] [place], [place] [id number] Health Maintenance Due Date Last Done Comments RSV vaccine for adults or (1 - Risk 60-74 years 1-dose series) 2017 Mammogram for age 45-75 10/26/2024 10/27/19, 09/24/2022, 09/17/2021, Additional history exists BMI (ht and wt on same day) for age 18+ 02/07/2025 02/08/2024, 01/26/2023, 01/14/2023, Additional history exists Medicare Wellness for age 65+ 02/08/2025 02/08/2024, 09/22/2022 Depression screening for age 12+ 02/10/2025 02/11/2024, 02/08/2024, 02/08/2024, Additional history exists Colonoscopy through age 75 09/23/202709/22, 09/22/2017, 04/28/2007 Lipids for age 45-75 07/28/2028 07/29/2023, 09/22/2022, 08/28/2021, Additional history exists Tetanus booster 08/30/2028 08/30/2018, 03/18, 10/20/1999 Tdap Completed 08/30/2018, 04/10/2009 Zoster (shingles) series for age 50+ Completed 03/21/2019, 01/06/2019 Hepatitis C screening for ag e 18-79 Completed 04/15/2021, 03/08/2018 Pneumococcal series for age 50+ Completed 09/29/2022, 08/15/2014, 01/10/2004 DEXA/DXA scan for age 65+ Completed 2022, 12/25/2019, 06/17/2017, Additional history exists COVID-19 vaccine series Completed 02/08/20, 03/19/2022, 12/09/2021, Additional history exists Influenza for age 65+ Completed 02/08/2024 , 02/25/2023, 03/19/2022, Additional history exists Medical Devices Implanted Type Area Ice Cream Man Device Identifier Shelf Expiration Date Model / Serial / Lot [id number] one 1-4mm 15cc Medtronic Chips Canclls Freeze Dried Implanted:Qty: 1 on 04/15/2021 by Flora Han MD at [facility] Explanted:at [facility] (Quantity not on file) N/A: Spine Medtronic Spine/Ortho 04/02/2025 [id number] / [id number] / Spacer Spinal [id number] Adaptix - [id number] Implanted:Qty: 1 on 04/15/2021 by Flora Han MD at [facility] N/A: Spine Medtronic Spine/Ortho 07/01/2028 [id number] / / [id number] Spacer Spinal 24x9mm Adaptix - [id number] Implanted:Qty: 1 on 04/15/2021 by Flora Han MD at [facility] N/A: Spine Medtronic Spine/Ortho 03/19/2028 [id number] / / [id number] one Matrix 6cc [place] Dbf Putty Dbm Implanted:Qty: 1 on 04/15/2021 by Flora Han MD at [facility] Explanted:at [facility] (Quantity not on file) N/A: Spine Medtronic Spine/Ortho 03/24/2023 [id number] / [id number] / Bone Matrix 6cc [place] Dbf Putty Dbm - [id number] Implanted:Qty: 1 on 04/15/2021 by Flora Han MD at [facility] Explanted:at [facility] (Quantity not on file) N/A: Spine Medtronic Spine/Ortho 03/24/2023 [id number] / [id number] / Set Screw Lmbr Ant 5.5mm Solera Break Off - [id number] Implanted:Qty: 6 on 04/15/2021 by Flora Han MD at [facility] N/A: Spine Medtronic Spine/Ortho [id number] / / Screw Lmbr Post 5.5x50mm Solera 5.5/6 Va Cocr - [id number] Implanted:Qty: 2 on 04/15/2021 by Flora Han MD at [facility] N/A: Spine Medtronic Spine/Ortho [id number] / / Screw Lmbr Post 6.5x50mm Solera 5.5/6 Va Cocr - [id number] Implanted:Qty: 4 on 04/15/2021 by Flora Han MD at [facility] N/A: Spine Medtronic Spine/Ortho [id number] / / Michael Lmbr 70x5.5mm Solera 5.5/6 Cvd Titnm - [id number] Implanted:Qty: 2 on 04/15/2021 by Flora Han MD at [facility] N/A: Spine Medtronic Spine/Ortho [id number] / / Fem Rt 3 Triathlon Beaded W/Pa - [id number] Implanted:Qty: 1 on 01/21/2023 by Ameya Daniel MD at [facility] Right: Knee [facility] 01/04/2028 [id number] / / [id number] Baseplate Tib Univ Sz 3 Triathlon Keeled Ingrowth Pors Tritan - [id number] Implanted:Qty: 1 on 01/21/2023 by Ameya Daniel MD at [facility] Right: Knee [facility] 11/15/2027 [id number] / / [id number] Patella A29x9 Triathlon Tritanium Asymmetric Metal Backed - [id number] Implanted:Qty: 1 on 01/21/2023 by Ameya Daniel MD at [facility] Right: Knee [facility] 10/26/2027 [id number] / / [id number] Insert Tib Sz 3 11mm Knee X3 Condylar Stabilizing Triathlon - [id number] Implanted:Qty: 1 on 01/21/2023 by Ameya Daniel MD at [facility] Right: Knee [facility] 11/30/2027 [id number] / / [id number] Putty Easypack 2.5cc Magnetos - [id number] Implanted:Qty: 1 on 08/10/2023 by Flora Han MD at [facility] N/A: Spine O Entregadoros Moleculin [facility] 02/15/2028 [id number] / / [id number] Bone 1-4mm 30cc Medtronic Chips Canclls Freeze Dried - [id number] Implanted:Qty: 1 on 08/10/2023 by Flora Han MD at [facility] N/A: Spine Medtronic Spine/Ortho 06/30/2027 [id number] / [id number] / Spacer Catalyft 9mm Pl Lng - [id number] Implanted:Qty: 1 on 08/10/2023 by Flora Han MD at [facility] N/A: Spine Medtronic Spine/Ortho 06/21/2031 [id number] / / [id number] Set Screw Lmbr Ant 5.5mm Solera Break Off - [id number] Implanted:Qty: 8 on 08/10/2023 by Flora Han MD at [facility] N/A: Spine Medtronic Spine/Ortho [id number] / / Screw Lmbr Post 7.5x50mm Solera 5.5/6 Va Cocr - [id number] Implanted:Qty: 2 on 08/10/2023 by Flora Han MD at [facility] N/A: Spine Medtronic Spine/Ortho [id number] / / Michael Lmbr 80x5.5mm Solera 5.5/6 Cvd Titnm - [id number] Implanted:Qty: 1 on 08/10/2023 by Flora Han MD at [facility] N/A: Spine Medtronic Spine/Ortho [id number] / / Michael Lmbr 90x5.5mm Solera 5.5/6 Cvd Titnm - [id number] Implanted:Qty: 1 on 08/10/2023 by Flora Han MD at [facility] N/A: Spine Medtronic Spine/Ortho [id number] / / Screw Lmbr Post 6.5x50mm Solera 5.5/6 Va Cocr - [id number] Implanted:Qty: 4 on 08/10/2023 by Flora Han MD at [facility] N/A: Spine Medtronic Spine/Ortho [id number] / / Explanted Type Area Ice Cream Man Device Identifier Shelf Expiration Date Model / Serial / Lot Explant Explanted:Qty: 1 on 08/10/2023 by Flora Han MD at [facility] Description:4 SCREWS, 2 RODS , 6 SET SCREWS Procedures Procedure Name Priority Date/Time Associated Diagnosis Comments MR SPINE LUMBAR WO Routine 05/03/2024 11 :56 AM MEDICAL OFFICE TECHNICIAN Lumbar radicular pain AEROBIC BACTERIAL CULTURE, STAIN Routine 04/10/2024 7:38 PM MEDICAL OFFICE TECHNICIAN Wound infection Open wound of right lower leg, initial encounter XR MAMMO BILAT SCREENING Routine 10/27/2023 1:52 PM CDT Encounter for other screening for malignant neoplasm of breast LIPID PANEL W REFLEX MEASURED LDL Routine 07/29/2023 12:39 PM CDT Type 2 diabetes mellitus without complication, without long-term current use of insulin (HC) XR DXA BONE DENSITY 1 SITE AXIAL AND 1 SITE PERIPHERAL Routine 10/01/2022 4:13 PM CDT Age-related osteoporosis without current pathological fracture EXPOSURE (BBF) ANTI HCV STAT 04/15/2021 5:20 PM MEDICAL OFFICE TECHNICIAN COLONOSCOPY 09/22/2017 12:42 PM CDT from Last 3 Months or Most Recently Relevant to Health Maintenance Results * MR SPINE LUMBAR WO (05/03/2024 11:56 AM MEDICAL OFFICE TECHNICIAN) Anatomical Region Laterality Modality Spine, LUMBAR SPINE Magnetic Res onance 05/04/2024 8:46 AM MEDICAL OFFICE TECHNICIAN Impressions 05/04/2024 8:46 AM MEDICAL OFFICE TECHNICIAN 1. Interval extension of posterior instrumented fusion superiorly to the L1 level. 2. New depression of the T12 inferior endplate with edema throughout the T12 vertebral body, suspicious for acute or subacute compression fracture. Consider CT correlation. 3. New mixed signal intensity dorsal epidural fluid collection from T10-L1, favored to represent a hematoma, resulting in moderate-severe spinal canal stenosis. 4. Of note, vertebral edema related to osteomyelitis with associated epidural abscess could have a similar appearance and can not be entirely excluded. 5. At L3-L4, similar mild spinal canal stenosis and mild-moderate right neural foraminal narrowing. Dictated by Jony Flores MD @ 05/04/2024 8:46:51 AM (Electronically Signed) Narrative 05/04/2024 8:46 AM MEDICAL OFFICE TECHNICIAN For Patients: As a result of the Cures Act, medical imaging exams and procedure reports are released immediately into your electronic medical record. You may view this report before your referring provider. If you have questions, please contact your health care provider. INDICATION: Low back pain. TECHNIQUE: Multisequence multiplanar MRI of the lumbar spine without the use of intravenous contrast. COMPARISON: MRI lumbar spine dated 08/09/2023. FINDINGS: Interval extension of posterior instrumented fusion hardware superiorly to the L1 level. Redemonstrated anterior interbody fusion L4-L5 and L5-S1. A dorsal epidural fluid collection from T10-L1 demonstrates mixed signal intensity suspicious for hematoma. There is a new apparent depression of the T12 inferior endplate with edema throughout the T12 vertebral body. Posterior aspects of the vertebral bodies are aligned. The conus medullaris terminates normally at the L1 level. Few subcentimeter renal parenchymal hyperintensities are not adequately characterized but most typical for cysts. T11-T12: Moderate spinal canal stenosis resulting from a dorsal epidural fluid collection. No high-grade neural foraminal narrowing. T12-L1: Moderate-severe spinal canal stenosis resulting from a dorsal epidural fluid collection and symmetric disc bulging. No high-grade neural foraminal narrowing. L1-L2: Postsurgical changes. No significant spinal canal or high-grade neural foraminal stenosis. L2-L3: Postsurgical changes. Decompressive right hemilaminectomy. Patent thecal sac with no high-grade neural foraminal narrowing. L3-L4: Symmetric disc bulge. Moderate facet joint arthrosis. Mild spinal canal stenosis and mild-moderate right neural foraminal narrowing. No significant left neural foraminal narrowing. L4-L5: Postsurgical changes. No high-grade spinal canal or neural foraminal stenosis. L5-S1: Postsurgical changes. No high-grade spinal canal or neural foraminal stenosis. Procedure Note Reinaldo Flores MD - 05/04/2024 For Patients: As a result of the Cures Act, medical imagingexams and procedure reports are released immediately into your electronicmedical record. You may view this report before your referring provider.If you have questions, please contact your health care provider. INDICATION: Low back pain. TECHNIQUE: Multisequence multiplanar MRI of the lumbar spine without the use ofintravenous contrast. COMPARISON: MRI lumbar spine dated 08/09/2023. FINDINGS: Interval extension of posterior instrumented fusion hardware superiorly tothe L1 level. Redemonstrated anterior interbody fusion L4-L5 and L5-S1. Adorsal epidural fluid collection from T10-L1 demonstrates mixed signalintensity suspicious for hematoma. There is a new apparent depression ofthe T12 inferior endplate with edema throughout the T12 vertebral body.Posterior aspects of the vertebral bodies are aligned. The conusmedullaris terminates normally at the L1 level. Few subcentimeter renalparenchymal hyperintensities are not adequately characterized but mosttypical for cysts. T11-T12: Moderate spinal canal stenosis resulting from a dorsal epiduralfluid collection. No high-grade neural foraminal narrowing. T12-L1: Moderate-severe spinal canal stenosis resulting from a dorsalepidural fluid collection and symmetric disc bulging. No high-grade neuralforaminal narrowing. L1-L2: Postsurgical changes. No significant spinal canal or high-gradeneural foraminal stenosis. L2-L3: Postsurgical changes. Decompressive right hemilaminectomy. Patentthecal sac with no high-grade neural foraminal narrowing. L3-L4: Symmetric disc bulge. Moderate facet joint arthrosis. Mild spinalcanal stenosis and mild-moderate right neural foraminal narrowing. Nosignificant left neural foraminal narrowing. L4-L5: Postsurgical changes. No high-grade spinal canal or neuralforaminal stenosis. L5-S1: Postsurgical changes. No high-grade spinal canal or neuralforaminal stenosis. IMPRESSION: 1. Interval extension of posterior instrumented fusion superiorly to theL1 level. 2. New depression of the T12 inferior endplate with edema throughout theT12 vertebral body, suspicious for acute or subacute compression fracture.Consider CT correlation. 3. New mixed signal intensity dorsal epidural fluid collection [id number], favored to represent a hematoma, resulting in moderate-severespinal canal stenosis. 4. Of note, vertebral edema related to osteomyelitis with associatedepidural abscess could have a similar appearance and can not be entirelyexcluded. 5. At L3-L4, similar mild spinal canal stenosis and mild-moderate rightneural foraminal narrowing. Dictated by Jony Flores MD @ 05/04/2024 8:46:51 AM (Electronically Signed) us Susan PALUMBO MR Final Resu lt * (ABNORMAL) AEROBIC BACTERIAL CULTURE, STAIN (04/10/2024 7:38 PM MEDICAL OFFICE TECHNICIAN) CULTURE RESULT(A) 04/13/2024 8:49 AM MEDICAL OFFICE TECHNICIAN [facility] CULTURE 4+ Klebsiella pneumoniae 04/13/2024 8:49 AM MEDICAL OFFICE TECHNICIAN [facility] GRAM STAIN No PMNs 04/13/2024 8:49 AM MEDICAL OFFICE TECHNICIAN [facility] GRAM STAIN No Epithelial cells 04/13/2024 8:49 AM MEDICAL OFFICE TECHNICIAN [facility] GRAM STAIN No RBCs 04/13/2024 8:49 AM MEDICAL OFFICE TECHNICIAN [facility] GRAM STAIN 1+ Gram Positive Bacilli 04/13/2024 8:49 AM MEDICAL OFFICE TECHNICIAN [facility] Other (Other) Non-Blood / Unknown 04/10/2024 7:38 PM MEDICAL OFFICE TECHNICIAN 04/10/2024 7:39 PM MEDICAL OFFICE TECHNICIAN Narrative Organism Antibiotic Method Susceptibility Klebsiella pneumoniae TRIMETHOPRIM/SULF <=06/04: S Klebsiella pneumoniae AMPICILLIN >=32: R Klebsiella pneumoniae CEFAZOLIN 2: S Klebsiella pneumoniae GENTAMICIN <=1: S Klebsiella pneumoniae CEFTRIAXONE <=0.25: S Klebsiella pneumoniae CEFTAZIDIME <=0.5: S Klebsiella pneumoniae LEVOFLOXACIN <=0.12: S Klebsiella pneumoniae CIPROFLOXACIN <=0.06: S Klebsiella pneumoniae PIPERACILLIN/TAZO <=4: S Klebsiella pneumoniae AMPICILLIN/SULBACTAM 4: S Klebsiella pneumoniae CEFEPIME <=0.12: S Klebsiella pneumoniae MEROPENEM <=0.25: S us Jose Diaz MICROBIOLOGY Final Result [facility] [address] [place] [address], [place] * XR MAMMO BILAT SCREENING (10/27/2023 1:52 PM CDT) Anatomical Region Laterality Modality BREASTS, Breast Left, Breast Right Bilateral Mammography Impressions 10/28/2023 7:10 AM CDT There is no radiographic evidence for malignancy. Recommend annual mammograms. MAMMOGRAM ASSESSMENT: ACR 1 Negative PATIENTS: You will also receive a letter with your examination results in an easy to read format. If you have questions about your results, please contact your referring provider. Narrative 10/28/2023 7:10 AM CDT For Patients: As a result of the Century Cures Act, medical imaging exams and procedure reports are released immediately into your electronic medical record. You may view this report before your referring provider. If you have questions, please contact your health care provider. XR MAMMO BILAT SCREENING [[id number]] CLINICAL HISTORY: This is an asymptomatic 68 y.o. patient. INDICATION FOR EXAM: Mammogram Screening. TECHNIQUE: CC & MLO views were obtained. This study was evaluated with the assistance of Computer-Aided Detection. COMPARISON FILM: Yes [facility] FINDINGS: There are scattered areas of fibroglandular density. There are no dominant masses, suspicious micro calcifications or areas of architectural distortion. us Susan PALUMBO MAMMO Final Resu lt * (ABNORMAL) LIPID PANEL W REFLEX MEASURED LDL (07/29/2023 12:39 PM CDT) CHOLESTEROL,TOTAL 174 100 - 199 mg/dL 07/29/2023 9:14 PM CDT [facility] Comment: Cholesterol, Total Reference Ranges Desirable <200 mg/dL Borderline 200-239 mg/dL High >=240 mg/dL TRIGLYCERIDES 186(H) <150 mg/dL 07/29/2023 9:14 PM CDT [facility] HDL CHOLESTEROL 61 >40 mg/dL 9:14 PM CDT [facility] NON-HDL CHOLESTEROL 113 <145 mg/dl 07/29/2023 9:14 PM CDT [facility] CHOL/HDL RATIO 2.85 <4.50 07/29/2023 9:14 PM CDT [facility] TR[facility] LDL CHOLESTEROL 76 <=130 mg/dL 07/29/2023 9:14 PM CDT [facility] VLDL CHOLESTEROL 37(H) <=30 mg/dL 07/29/2023 9:14 PM CDT [facility] TR[facility] PROVIDER ORDERED STATUS RANDOM 07/29/2023 9:14 PM CDT [facility] [employer] [facility] Blood BLOOD SPECIMEN / Unknown Venipuncture / Unknown 07/29/2023 12:39 PM CDT 07/29/2023 12:41 PM CDT us Susan PALUMBO CHEMISTRY Final Resu lt [facility] [employer] LAB[facility]AT[facility]AL LABORATORY [address] [place] [address], [place] * (ABNORMAL) XR DXA BONE DENSITY 1 SITE AXIAL AND 1 SITE PERIPHERAL (10/01/2022 4:13 PM CDT) Anatomical Region Laterality Modality LUMBAR SPINE Computed Radiogr aphy Impressions 10/06/2022 3:23 PM CDT Osteopenia. Lowest T score -1.9. Able to compare DEXA scans from outside facilities. FRAX score not valid due to previous treatment with Forteo. RECOMMENDATIONS: The National Osteoporosis Foundation recommends pharmacologic treatment for patients with T-scores of -2.5 or less, patients with prior history of fragility fractures, or patients with 10-year probability of greater than 3% at hips or greater than 20% of suffering major osteoporotic fractures. Recommend continued optimization of calcium and vitamin D intake through dietary means and/or supplementation and regular exercise. Repeat scan recommended in 3-5 years. Narrative 10/06/2022 3:23 PM CDT For Patients: Results are automatically released to your [employer] account once available, in compliance with federal regulations. This means that you may see your results before your provider has had a chance to review them. Please allow 2-3 business days for your provider to comment on the results. XR DXA Bone Mineral Density (BMD) EXAM [facility] [address] [address] PATIENT NAME: Maye Dye DATE OF : 1955 EXAM DATE: 10/01/2022 REQUESTING PROVIDER: Susan Kenny GENDER AT : female HEIGHT: 5' 4.75 (09/22/2022) WEIGHT: 182 lb (09/29/2022) MENOPAUSAL STATUS: Postmenopausal RACE/ETHNICITY: White RISK FACTORS: Family History of Osteoporosis, Family History of Hip Fracture (parental), Smoking (prior) CURRENT MEDICATION FOR BONE LOSS: NONE, previous Forteo INDICATION: Follow-up of existing osteopenia COMPARISON DATE(S): None DXA scans are compared to prior studies for a patient only when the two (or more) studies were performed on the same scanner. It is not possible to compare data generated on one scanner to data from another because there are not standards in DXA equipment. This applies even if the two scanners are made by the same spike machine operator. PROCEDURE: Dual-energy x-ray absorptiometry performed with routine technique. Reporting is completed in the form of a T-score. The T-score represents the standard deviation from peak bone mass based on young healthy adult. A Z-score is used for diagnosis in premenopausal women, and for men under the age of 50. FINDINGS: RESULTS FEMUR Left femoral neck BMD: 0.780 g/cm2 T-Score: - 1.9 Change from prior: None Left hip BMD: 0.841 g/cm2 T-Score: - 1.3 Change from prior: None RESULT FOREARM Left Forearm distal radius BMD: 0.798 g/cm2 T-Score: - 1.0 Change from prior: None WHO criteria: Normal: T-score at or above -1 SD Osteopenia: T-score between -1.1 and -2.4 SD Osteoporosis: T-score at or below -2.5 SD us Susan PALUMBO DEXA Final Resu lt * Patient Source ANTI HCV (04/15/2021 5:20 PM MEDICAL OFFICE TECHNICIAN) Pathologist [facility] HEPATITIS C ANTIBODY Non-React faith Non-React faith 04/15/2021 8:03 PM MEDICAL OFFICE TECHNICIAN [facility] Comment:Antibodies to HCV no t detected; does not exclude the possibility of exposure to HCV. Blood BLOOD SPECIMEN / Unknown Non-Lab Venipuncture / Unknown 04/15/2021 5:20 PM MEDICAL OFFICE TECHNICIAN 04/15/2021 5:30 PM MEDICAL OFFICE TECHNICIAN Flora Han MD SEND OUTS Final Result [facility] LAB[facility] [address] [place] [address], [place] * COLONOSCOPY (09/22/2017 12:42 PM CDT) 09/22/2017 12:4 2 PM CDT Narrative Transcriptions Johnny Lopez MD - 09/22/2017 2:03 PM CDT Patient Name: Maye Dye Procedure Date: 09/22/2017 Gender: Female Date of : 1955 Admit Type: Ambulatory Procedure: Colonoscopy Proceduralist: Johnny Lopez MD , Alexandra Mckeon (Nurse), Elizabet Chaves (Nurse) Indications/Pre-Op Diagnosis: Unexplained iron deficiency anemia, Last colonoscopy: April 2007 Medications: Fentanyl 100 micrograms IV, Midazolam 6 mgIV, The level of sedation administered wasmoderate Procedure Description: The patient had risks, benefits and alternatives explained to andgave informed consent. The patient had a stable cardiopulmonary status and judged an adequate candidate for conscious sedation. The Colon CF-[id number] [id number] was passed through the anus and advancedto the cecum, identified by appendiceal orifice and ileocecal valve. The colonoscopy was performed without difficulty. The patient toleratedthe procedure well. The quality of the bowel preparation was good. The ileocecal valve, appendiceal orifice, and rectum were photographed. Complications: No immediate complications. Estimated Blood Loss & Specimen: Estimated blood loss: none. Specimen collected - Yes and sent to Laboratory Findings: The perianal and digital rectal examinations were normal. A 4 mm polyp was found in the ascending colon. The polyp was sessile. The polyp was removed with a cold snare. Resection and retrieval were complete. A 8 mm polyp was found in the transverse colon. The polyp was pedunculated. The polyp was removed with a hot snare. Resection and retrieval were complete. Many small and large-mouthed diverticula were found in the sigmoidcolon. The colon (entire examined portion) was significantly redundant. The exam was otherwise without abnormality on direct and retroflexion views. Impressions/Post-Op Diagnosis: - One 4 mm polyp in the ascending colon, removed with a cold snare. Resected and retrieved. - One 8 mm polyp in the transverse colon, removed with a hot snare. Resected and retrieved. - Diverticulosis in the sigmoid colon. - Redundant colon. - The examination was otherwise normal on direct and retroflexionviews. Recommendation: - Patient has a contact number available for emergencies. The signsand symptoms of potential delayed complications were discussed with the patient. Return to normal activities tomorrow. Written discharge instructions were provided to the patient. - Resume previous diet. - Continue present medications. - Await pathology results. - Repeat colonoscopy is recommended. The colonoscopy date will be determined after pathology results from today's exam become available for review. - For future colonoscopy the patient will require an extended preparation, PEG 8L, adult scope. If there are any questions, please contact the director of housing and energy services. Moderate Sedation: Moderate (conscious) sedation was administered by the endoscopy nurse and supervised by the endoscopist. The following parameters were monitored: oxygen saturation, heart rate, respiratory rate, blood pressure, adequacy of pulmonary ventilation and reponse to care. [facility] flowsheets and nursing notes for moderate sedation details. Total physician intraservice time was 48 minutes. Johnny Lopez MD 09/22/2017 2:03:35 PM This report has been signed electronically. Note Initiated On: 09/22/2017 12:42 PM Procedure Code(s): --- Professional --- 54081, Colonoscopy, flexible; with removalof tumor(s), polyp(s), or other lesion(s) bysnare technique Diagnosis Code(s): --- Professional --- D12.2, Benign neoplasm of ascending colon D12.3, Benign neoplasm of transverse colon (hepatic flexure or splenic flexure) D50.9, Iron deficiency anemia, unspecified K57.30, Diverticulosis of large intestine without perforation or abscess withoutbleeding Q43.8, Other specified congenitalmalformations of intestine CPT copyright 2017 [employer]. All rights reserved. The codes documented in this report are preliminary and upon records and information manager reviewmay be revised to meet current compliance requirements. 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 Do not delete or resolve the Infection Flag. 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 12/12/2021 * Full Code (Latest Code Status on File) Date Activated Date Inactivated Comments 08/09/2023 5:17 PM 08/16/2023 1:22 PM Question Answer Comments Code Status Discussion: Reviewed Preferences * Full Code Date Activated Date Inactivated Comments 01/21/2023 2:31 PM 01/22/2023 5:00 PM Question Answer Comments Code Status Discussion: Unable to Assess Preferences, Provider to review later * Full Code Date Activated Date Inactivated Comments 01/21/2023 8:08 AM 01/21/2023 2:31 PM Question Answer Comments Code Status Discussion: Not Discussed * Full Code Date Activated Date Inactivated Comments 10/13/2022 4:58 PM 10/14/2022 5:32 PM Question Answer Comments Code Status Discussion: Reviewed Preferences * Full Code Date Activated Date Inactivated Comments 10/13/2022 11:47 AM 10/13/2022 4:58 PM Question Answer Comments Code Status Discussion: Unable to Assess Preferences, Provider to review later Care Teams Fire Hydrant Mechanic Relationship Specialty Start Date End Date Susan Kenny PA [address] [place] [address] PCP - General Physician Horse Riding Coach Or Instructor 06/15/23 [address] [place] [address] 01/22/23
--- OUTSIDE RECORDS SUMMARY | 2024-05-18 12:03 | XMS_ITS | Clinical Summary ---
Author Organization [facility] Address [address] [place] [id number] Care Team Providers Care Electrophysiology Nurse Practitioner Name Role Phone Susan Kenny PA-C Unavailable [phone] Luis A Flores MD Unavailable [phone] Susan Kenny PA-C Unavailable Susan Kenny PA-C Primary Care Provider [phone] Sonia Castrejon Od OD Unavailable [phone] Allergies Active Allergy Reactions Criticality Noted Date [...] Orientation Not on file Plan of Treatment Health Maintenance Due Date Last Done Comments ADVANCE CARE PLANNING 1957 ANNUAL REVIEW OF HM ORDERS 1957 CT COLONOGRAPHY 1957 DEXA 1957 FIT 1957 FLEX SIG 1957 GLUCOSE 1957 MAMMO SCREENING 1957 sDNA (Cologuard) 1957 COLONOSCOPY 09/09/1967 COLORECTAL CANCER SCREENING 09/09/1967 HEPATITIS C SCREENING 09/09/1975 LIPID 1997 Pneumococcal Vaccine: 50+ Years (3 of 3 - PCV20 or PCV21) 08/16/2019 08/15/2014, 01/10/2004 FALL RISK ASSESSMENT 2022 MEDICARE ANNUAL WELLNESS VISIT 2022 PHQ-2 (once per calendar year) 2023 08/21/2021 COVID-19 Vaccine ( - season) 2024 04/11/2021, 09/19/2020, 08/29/2020 INFLUENZA VACCINE (#1) 2024 , 03/02/2020, 01/29/2019, Additional history exists DTAP/TDAP/TD IMMUNIZATION (3 - Td or Tdap) 08/30/2028 08/30/2018, 04/10/2009, 10/20/1999 RSV VACCINE (1 - 1-dose 75+ series) 2032 ZOSTER IMMUNIZATION Completed 03/21/2019, 9 HPV IMMUNIZATION Aged Out No longer e ligible based on patient's age to complete this topic MENINGITIS IMMUNIZATION Aged Out No l onger eligible based on patient's age to complete this topic RSV MONOCLONAL ANTIBODY Aged Out No l onger eligible based on patient's age to complete this topic Insurance spring [place]AMIL[place] [id number] [facility] Care Teams Electrophysiology Nurse Practitioner Relationship Specialty Start Date End Date Susan Kenny PA-C PCP - General 08/29/21 Susan Kenny PA-C 07/11/21 Luis A Flores MD Ophthalmology 07/11/21 Susan Kenny PA-C 08/29/21 Sonia Castrejon Od, [facility] [address] [place] [id number] 09/04/21
== END 2024-05-18 13:58 | disposition home or self-care (01) ==
LOC: WOUND 13:58
PROVIDERS: PCP Physician Assistant; Visit Provider Nurse Practitioner Family
DX: I89.0 Lymphedema, not elsewhere classified (principal); E11.622 Type 2 diabetes mellitus with other skin ulcer; L97.812 Non-pressure chronic ulcer of other part of right lower leg with fat layer exposed; Z79.84 Long term (current) use of oral hypoglycemic drugs
CPT/HCPCS: 11042; G0463

== ENCOUNTER 2024-05-25 13:58 | Outpatient (CLI) | payer MEDICARE, SELFPAY | END 2024-05-25 13:59 | disposition home or self-care (01) | PROVIDERS: PCP Physician Assistant; Visit Provider Nurse Practitioner Family | DX: I89.0 Lymphedema, not elsewhere classified (principal); E11.622 Type 2 diabetes mellitus with other skin ulcer; L97.828 Non-pressure chronic ulcer of other part of left lower leg with other specified severity; L97.812 Non-pressure chronic ulcer of other part of right lower leg with fat layer exposed; Z79.4 Long term (current) use of insulin | CPT/HCPCS: 11042; 87070; 87186 ==

== ENCOUNTER 2024-06-08 14:00 | Outpatient (CLI) | payer MEDICARE, SELFPAY | END 2024-06-08 14:01 | disposition home or self-care (01) | LOC: WOUND 14:00 | PROVIDERS: PCP Physician Assistant; Visit Provider Nurse Practitioner Family | DX: I87.313 Chronic venous hypertension (idiopathic) with ulcer of bilateral lower extremity (principal); I89.0 Lymphedema, not elsewhere classified; E11.622 Type 2 diabetes mellitus with other skin ulcer; L97.822 Non-pressure chronic ulcer of other part of left lower leg with fat layer exposed; L97.812 Non-pressure chronic ulcer of other part of right lower leg with fat layer exposed; Z79.4 Long term (current) use of insulin | CPT/HCPCS: 11042 ==

== ENCOUNTER 2024-06-15 11:11 | Outpatient (CLI) | payer MEDICARE, SELFPAY | END 2024-06-15 11:12 | disposition home or self-care (01) | LOC: WOUND 11:11 | PROVIDERS: PCP Physician Assistant; Visit Provider Nurse Practitioner Family | DX: I87.313 Chronic venous hypertension (idiopathic) with ulcer of bilateral lower extremity (principal); E11.622 Type 2 diabetes mellitus with other skin ulcer; I89.0 Lymphedema, not elsewhere classified; L97.822 Non-pressure chronic ulcer of other part of left lower leg with fat layer exposed; L97.818 Non-pressure chronic ulcer of other part of right lower leg with other specified severity; Z79.4 Long term (current) use of insulin | CPT/HCPCS: 11042; 11043 ==

== ENCOUNTER 2024-06-29 14:02 | Outpatient (CLI) | payer MEDICARE, SELFPAY | END 2024-06-29 14:03 | disposition home or self-care (01) | LOC: WOUND 14:02 | PROVIDERS: PCP Physician Assistant; Visit Provider Nurse Practitioner Family | DX: I87.313 Chronic venous hypertension (idiopathic) with ulcer of bilateral lower extremity (principal); I89.0 Lymphedema, not elsewhere classified; E11.622 Type 2 diabetes mellitus with other skin ulcer; L97.822 Non-pressure chronic ulcer of other part of left lower leg with fat layer exposed; L97.812 Non-pressure chronic ulcer of other part of right lower leg with fat layer exposed; Z79.4 Long term (current) use of insulin | CPT/HCPCS: 11042 ==

== ENCOUNTER 2024-07-06 13:57 | Outpatient (CLI) | payer MEDICARE, SELFPAY | END 2024-07-06 13:58 | disposition home or self-care (01) | LOC: WOUND 13:57 | PROVIDERS: PCP Physician Assistant; Visit Provider Nurse Practitioner Family | DX: I87.313 Chronic venous hypertension (idiopathic) with ulcer of bilateral lower extremity (principal); I89.0 Lymphedema, not elsewhere classified; E11.622 Type 2 diabetes mellitus with other skin ulcer; L97.822 Non-pressure chronic ulcer of other part of left lower leg with fat layer exposed; L97.812 Non-pressure chronic ulcer of other part of right lower leg with fat layer exposed; Z79.4 Long term (current) use of insulin | CPT/HCPCS: 11042 ==

== ENCOUNTER 2024-07-13 13:59 | Outpatient (CLI) | payer MEDICARE, SELFPAY | END 2024-07-13 14:00 | disposition home or self-care (01) | LOC: WOUND 13:59 | PROVIDERS: PCP Physician Assistant; Visit Provider Nurse Practitioner Family | DX: I87.313 Chronic venous hypertension (idiopathic) with ulcer of bilateral lower extremity (principal); E11.622 Type 2 diabetes mellitus with other skin ulcer; L97.822 Non-pressure chronic ulcer of other part of left lower leg with fat layer exposed; L97.812 Non-pressure chronic ulcer of other part of right lower leg with fat layer exposed; Z79.4 Long term (current) use of insulin | CPT/HCPCS: 97597 ==

== ENCOUNTER 2024-07-20 13:59 | Outpatient (CLI) | payer MEDICARE, SELFPAY | END 2024-07-20 14:00 | disposition home or self-care (01) | LOC: WOUND 13:59 | PROVIDERS: PCP Physician Assistant; Visit Provider Nurse Practitioner Family | DX: I87.312 Chronic venous hypertension (idiopathic) with ulcer of left lower extremity (principal); I89.0 Lymphedema, not elsewhere classified; E11.622 Type 2 diabetes mellitus with other skin ulcer; L97.822 Non-pressure chronic ulcer of other part of left lower leg with fat layer exposed; Z79.4 Long term (current) use of insulin | CPT/HCPCS: 11042 ==

== ENCOUNTER 2024-07-27 14:00 | Outpatient (CLI) | payer MEDICARE, SELFPAY | END 2024-07-27 14:01 | disposition home or self-care (01) | LOC: WOUND 14:00 | PROVIDERS: PCP Physician Assistant; Visit Provider Nurse Practitioner Family | DX: I87.312 Chronic venous hypertension (idiopathic) with ulcer of left lower extremity (principal); E11.622 Type 2 diabetes mellitus with other skin ulcer; I89.0 Lymphedema, not elsewhere classified; L97.822 Non-pressure chronic ulcer of other part of left lower leg with fat layer exposed; Z79.4 Long term (current) use of insulin | CPT/HCPCS: 11042 ==

== ENCOUNTER 2024-08-03 13:53 | Outpatient (CLI) | payer MEDICARE, SELFPAY | END 2024-08-03 13:54 | disposition home or self-care (01) | LOC: WOUND 13:53 | PROVIDERS: PCP Physician Assistant; Visit Provider Nurse Practitioner Family | DX: I87.312 Chronic venous hypertension (idiopathic) with ulcer of left lower extremity (principal); I89.0 Lymphedema, not elsewhere classified; E11.622 Type 2 diabetes mellitus with other skin ulcer; L97.821 Non-pressure chronic ulcer of other part of left lower leg limited to breakdown of skin; S61.402A Unspecified open wound of left hand, initial encounter; W54.0XXA Bitten by dog, initial encounter; Y93.89 Activity, other specified; Z79.4 Long term (current) use of insulin | CPT/HCPCS: G0463 ==

== ENCOUNTER 2024-08-10 14:05 | Outpatient (CLI) | payer MEDICARE, SELFPAY | END 2024-08-10 14:06 | disposition home or self-care (01) | LOC: WOUND 14:05 | PROVIDERS: PCP Physician Assistant; Visit Provider Physician Assistant | DX: I89.0 Lymphedema, not elsewhere classified (principal); E11.9 Type 2 diabetes mellitus without complications; Z79.4 Long term (current) use of insulin | CPT/HCPCS: G0463 ==